=== PATIENT | female | born 1935 | race Caucasian/White ===

== ENCOUNTER → 2016-07-21 16:48 | Outpatient (CLI) | payer OTHER ==
[2012-11-09 10:41] VITALS: BMI 29.7
[~2016-07-21 16:48] MED LIST: ALENDRONATE SOD70 MG PO; BETAPACE 80 MG80 MG PO; CARDIZEM CD240 MG PO; CARDIZEM30 MG PO; COUMADIN2.5 MG PO; EVISTA60 MG PO; GLUCOPHAGE500 MG PO; IPRAT-ALBUT 0.5-3 ML INH; LASIX40 MG PO; LEVO-T50 MCG PO; LEVOTHROID25 MCG; MACRODANTIN100 MG PO; PACERONE200 MG PO; PRINIVIL20 MG PO; PROTONIX FOR OR40 MG PO; SINEMET 25-1001 EACH PO; ZESTRIL40 MG PO
[2016-08-05 12:53] VITALS: BMI 29.8
== END | disposition home or self-care (01) ==
LOC: D.MRI 16:00
DX: M79.672 Pain in left foot (principal)

== ENCOUNTER → 2016-07-23 13:04 | Outpatient (CLI) | payer MEDICARE ==
[2012-11-09 10:41] VITALS: BMI 29.7
[2016-08-05 12:53] VITALS: BMI 29.8
== END | disposition home or self-care (01) ==
LOC: D.US 13:00
DX: I73.9 Peripheral vascular disease, unspecified (principal); M79.605 Pain in left leg; M79.604 Pain in right leg

== ENCOUNTER 2016-08-04 19:41 | Inpatient (IN) | payer MEDICARE ==
[~2016-08-04] VITALS: Ht 158.8 cm; Wt 76.4 kg
[~2016-08-04 19:41] MED LIST changes: -ALENDRONATE SOD70 MG PO; -BETAPACE 80 MG80 MG PO; -CARDIZEM30 MG PO; -GLUCOPHAGE500 MG PO; -IPRAT-ALBUT 0.5-3 ML INH; -LASIX40 MG PO; -LEVO-T50 MCG PO; -MACRODANTIN100 MG PO; -PROTONIX FOR OR40 MG PO; -SINEMET 25-1001 EACH PO; -ZESTRIL40 MG PO
[2016-08-04 20:16] LABS: BASOPHILS 0.1 % (0.0-2.0); EOSINOPHILS 0.1 % (0-7); HEMATOCRIT 35.4 % (36.0-48.0); HEMOGLOBIN 11.9 g/dL (12-16); IMMATURE GRANULOCYTES 0.5 % (0-5); LYMPHOCYTES 21.5 % (15-50); MCH 30.4 pg (26.0-34.0); MCHC 33.6 g/dL (31.0-37.0); MCV 90.3 fL (80.0-100.0); MEAN PLATELET VOLUME 9.8 fL (7.4-10.4); MONOCYTES 8.7 % (2-11); NEUTROPHILS 69.1 % (40-80); RBC 3.92 10x6/uL (4.00-5.40); RDW 15.4 % (11.5-14.5); WBC 7.4 10x3/uL (4.8-10.8)
[2016-08-04 20:27] LABS: PLATELET COUNT 219 10x3/uL (130-400)
[2016-08-04 20:32] LABS: ALBUMIN 3.5 g/dL (3.4-5.0); ANION GAP 16.4 mmol/L (8-16); BILIRUBIN - TOTAL 0.68 mg/dL (0.2-1.3); CALCIUM 8.8 mg/dL (8.5-10.1); CARBON DIOXIDE 20.6 mmol/L (21.0-32.0); CREATININE - SERUM 0.9 mg/dL (0.6-1.3); PROTEIN - SERUM 7.6 g/dL (6.4-8.2)
[2016-08-04 21:21] LABS: CREATINE KINASE 49 UL (21-215); PRO BNP 4459 pg/mL (0-450)
[2016-08-04 21:24] LABS: TROPONIN-I < 0.017 ng/mL (0.000-0.060)
[2016-08-04 22:09] LABS: THYROID STIMULATING HORMONE 3.79 uIU/mL (0.36-3.74)
--- NOTE | 2016-08-04 23:11 | NUR ---
REC'D FROM RE DEPT PER STRETCHER TO ROOM 2219 AN 81 Y/O W/FE PER SERVICES DR. YATES WITH DX ANEMIA/CHF ALLERGY=SULFA/CODEINE. SALINE LOCK PATENT LEFT HAND ASSESSMENT PER ADMIT PACKET.
[2016-08-04 23:29] VITALS: BP 147/89; BMI 29.9
[2016-08-04] MEDS ORDERED: SINEMET 25-1001 EACH PO (23:47)
[2016-08-04] MEDS ORDERED: ZESTRIL40 MG PO (23:48)
[2016-08-04] MEDS ORDERED: ALENDRONATE SOD70 MG PO (23:49)
[2016-08-04] MEDS ORDERED: LEVO-T50 MCG PO (23:50)
[2016-08-04] MEDS ORDERED: GLUCOPHAGE500 MG PO (23:51)
[2016-08-04] MEDS ORDERED: LASIX40 MG PO (23:53)
[2016-08-04] MEDS ORDERED: BETAPACE 80 MG80 MG PO (23:55)
[2016-08-04] MEDS ORDERED: MACRODANTIN100 MG PO (23:56)
--- NOTE | 2016-08-05 00:30 | NUR ---
SITTING UPRIGHT IN BED EATING A SANDWICH TRAY DAUGHTER AT BEDSIDE.
--- NOTE | 2016-08-05 01:00 | NUR ---
PT WANTING IV OUT. EXPLAINED TO DAUGHTER AND PATIENT THE NEED TO KEEP IV IN PLACE FOR NEXT DOSE OF IV LASIX. BOTH ARE AGREEABLE. REPOSITIONED IN BED SR UP CALL LIGHT WITHIN REACH.
--- NOTE | 2016-08-05 03:35 | NUR ---
BEDSIDE UPDRAFT TX GIVEN PER RT TECH PT HAS BEEN SITTING ON SIDE OF BED WANTS TO STAND UP HOWEVER HEART RATE ELEVATED TO 120-133 PER FELTMAKER AND WEIGHER EXPLAINED TO PT'S DAUGHTER GETTING OUT OF BED AT THIS TIME WOULD NOT BE ADVISEABLE.
[2016-08-05 04:00] VITALS: BP 153/100
--- NOTE | 2016-08-05 07:45 | NUR ---
ASSESSMENT PER FLOW SHEET.PT HAVING SHORTNESS OF BREATH. RESP TX IN PROGESS WITH SATS 97 ON 2 LITERS PER NASAL CANULA.HR 144UAF.
--- NOTE | 2016-08-05 08:30 | NUR ---
INCREASED SHORTNESS OF BREATH. INCREASED HR 144UAF.EMMA ON UNIT TO SEE PT.DIG ORDERED PER MAR.FAMILY REFUSES TO LET PT HAVE DIGOXIN ORDERD.DAUGHTER STATES IT MAKES HER FORGET WHO SHE IS AND HER NAME. SPOKE WITH EMMA,NEW ORDERS RECIEVED AND INITIATED.
--- NOTE | 2016-08-05 08:53 | NUR ---
CARDIZEM 10 MG GIVEN IV ORDERED. PULSE RATE PRIOR TO MED WAS 136 UCAF. NOW POST MED IS 94 CAF. RESP SOB WITH WHEEZING NOTED.
[2016-08-05 08:59] VITALS: BP 130/76
--- NOTE | 2016-08-05 09:00 | NUR ---
REPORT TO MONSTER ON PCU.PT WILL GOT TO ROOM 2861
--- NOTE | 2016-08-05 09:14 | NUR ---
TO PCU VIA BED.
--- NOTE | 2016-08-05 10:10 | NUR ---
TELEMETRY UCAF. HR 110. IV PATENT. SCDS APPLIED. URINE SPECIMEN COLLECTED AND TAKEN TO LAB. WILL CONT. PLAN OF CARE.
[2016-08-05 12:00] VITALS: BP 140/82
[2016-08-05 12:53] VITALS: Ht 158.8 cm; Wt 76.4 kg
[2016-08-05 16:09] VITALS: BP 125/87
--- NOTE | 2016-08-05 19:59 | NUR ---
RESUMED CARE OF PT, LYING IN BED RESPIRAITONS EVEN AND UNLABORED ON 2LPM VIA NC. 84 CAF ON TELEMETRY. LEFT HAND INFUSING CARDIZEM @ 5. LARA CATH EMPTYING CONTRATED YELLOW URINE. NO NEEDS VOICED AT THIS TIME. WILL CONTINUE TO MONITOR. CALL LIGHT IN REACH. SEE NURSE ASSESSMENT.
[2016-08-05 20:00] VITALS: BP 113/63
[2016-08-06] VITALS: BP 108/73
--- NOTE | 2016-08-06 00:05 | NUR ---
TAKE OFF MAN AT BEDSIDE TO OBTAIN VITALS, CALL LIGHT IN REACH. WILL CONTINUE WITH PLAN OF CARE.
--- NOTE | 2016-08-06 00:30 | NUR ---
CONVERTED TO SR 64.
--- NOTE | 2016-08-06 01:15 | NUR ---
BED BATH AND LINENS CHANGED.
[2016-08-06 04:00] VITALS: BP 88/42
--- NOTE | 2016-08-06 04:34 | NUR ---
55 SB ON TELEMETRY, [employer] EXPERT REPORTS BP OF 61/43. CARDIZEM TURNED OFF, WILL CONTINUE TO MONITOR.
[2016-08-06 06:07] LABS: BASOPHILS 0.2 % (0.0-2.0); EOSINOPHILS 0 % (0-7); HEMATOCRIT 35.8 % (36.0-48.0); HEMOGLOBIN 11.9 g/dL (12-16); IMMATURE GRANULOCYTES 1.4 % (0-5); MCH 30.4 pg (26.0-34.0); MCHC 33.2 g/dL (31.0-37.0); MCV 91.6 fL (80.0-100.0); MEAN PLATELET VOLUME 10.1 fL (7.4-10.4); MONOCYTES 8.7 % (2-11); NEUTROPHILS 62.7 % (40-80); PLATELET COUNT 243 10x3/uL (130-400); RBC 3.91 10x6/uL (4.00-5.40); RDW 15.7 % (11.5-14.5)
[2016-08-06 06:37] LABS: WBC 12.5 10x3/uL (4.8-10.8)
[2016-08-06 06:38] LABS: ALBUMIN 3.7 g/dL (3.4-5.0); BILIRUBIN - TOTAL 1.33 mg/dL (0.2-1.3); CALCIUM 9.4 mg/dL (8.5-10.1); CARBON DIOXIDE 16.9 mmol/L (21.0-32.0); THYROID STIMULATING HORMONE 6.4 uIU/mL (0.36-3.74)
[2016-08-06 06:50] LABS: CREATININE - SERUM 1.6 mg/dL (0.6-1.3)
[2016-08-06 06:51] LABS: ANION GAP 23.5 mmol/L (8-16)
[2016-08-06 06:53] LABS: POTASSIUM - SERUM 6.4 mmol/L (3.5-5.1)
--- NOTE | 2016-08-06 07:15 | NUR ---
TELEMETRY SR. HR 60. DR. VALENTE NOTIFIED OF CR. LABS. NEW ORDERS GIVEN. WILL CONT. PLAN OF CARE.
[2016-08-06 09:00] VITALS: BP 138/75
[2016-08-06 12:16] LABS: POTASSIUM - SERUM 5.9 mmol/L (3.5-5.1)
[2016-08-06 12:29] VITALS: BP 134/84
--- NOTE | 2016-08-06 13:31 | NUR ---
URINE SPECIMEN TAKEN TO LAB. WILL MONITOR.
[2016-08-06 14:33] LABS: APPEARANCE CLOUDY (CLEAR); BILIRUBIN NEGATIVE (NEGATIVE); COLOR DK YELLOW (YELLOW); GLUCOSE NEGATIVE (NEGATIVE); KETONE NEGATIVE (NEGATIVE); LEUKOCYTE ESTERASE 1+ (NEGATIVE); NITRITE NEGATIVE (NEGATIVE); PROTEIN 2+ mg/dL (NEGATIVE); SPECIFIC GRAVITY 1.015 (1.005-1.020); UROBILINOGEN NORMAL (NORMAL)
[2016-08-06 14:34] LABS: BACTERIA MANY /hpf (NONE SEEN); EPITHELIAL CELLS 0-5 /hpf (0-5); HYALINE CAST OCC /lpf (NONE SEEN); MUCUS <1+ /lpf (NONE SEEN); RED CELLS - URINE 25-50 /hpf (0-5)
[2016-08-06 16:33] VITALS: BP 136/64
[2016-08-06 19:27] LABS: CALCIUM 9.2 mg/dL (8.5-10.1); CREATININE - SERUM 1.7 mg/dL (0.6-1.3); POTASSIUM - SERUM 5.1 mmol/L (3.5-5.1)
[2016-08-06 19:28] LABS: ANION GAP 18.6 mmol/L (8-16); CARBON DIOXIDE 22.5 mmol/L (21.0-32.0)
[2016-08-06 20:00] VITALS: BP 154/94
--- NOTE | 2016-08-06 22:03 | NUR ---
PAGE RENALS TO REVIEW 1800 BMP RESULTS AND GET PAIN MED.
--- NOTE | 2016-08-06 22:10 | NUR ---
SPOKE WITH MELI BRAGG AND UPDATED HER ON BMP RESULTS THAT WAS DONE AT 1900. ALSO SPOKE WITH HER IN REGARDS TO A MILD PAIN MED FOR PATIENT AND THAT DAUGHTER WOULD PREFER IT TO BE TYLENOL. ORDER RECIEVED. WILL CONTINUE TO MONITOR LABS.
--- NOTE | 2016-08-06 23:00 | NUR ---
CRUSHED PT'S MEDS AND GAVE IN APPLESAUCE, INCLUDING TYLENOL FOR GENERALIZED DISCOMFORT. PT TOO WEAK TO USE A STRAW, BUT WILL TAKE APPLEJUICE THAT IS SPOONED TO HER. DAUGHTER MASSAGING PATIENT'S FEET BECAUSE SHE SAID THEY ARE CRAMPING UP ON HER. ASSISTED TO PULL UP AND REPOSITION AND ENCOURAGED EXTRA BITES OF APPLESAUCE AND JUICE SINCE APPETITE AND INTAKE IS POOR.
[2016-08-07] VITALS (7 sets, daily range): BP systolic 119–151; BP diastolic 65–101
--- NOTE | 2016-08-07 03:21 | NUR ---
PT RESTING WITH EYES CLOSED. SINUS LAURYN/53 PER TELEMETRY. CALL LIGHT IN REACH.
[2016-08-07 05:05] LABS: BASOPHILS 0.1 % (0.0-2.0); EOSINOPHILS 0 % (0-7); HEMATOCRIT 35.7 % (36.0-48.0); HEMOGLOBIN 11.8 g/dL (12-16); IMMATURE GRANULOCYTES 0.5 % (0-5); LYMPHOCYTES 12.3 % (15-50); MCH 29.8 pg (26.0-34.0); MCHC 33.1 g/dL (31.0-37.0); MCV 90.2 fL (80.0-100.0); MEAN PLATELET VOLUME 10.2 fL (7.4-10.4); MONOCYTES 8.6 % (2-11); NEUTROPHILS 78.5 % (40-80); PLATELET COUNT 199 10x3/uL (130-400); RBC 3.96 10x6/uL (4.00-5.40); RDW 15.3 % (11.5-14.5); WBC 11.5 10x3/uL (4.8-10.8)
[2016-08-07 05:31] LABS: ALBUMIN 3.1 g/dL (3.4-5.0); BILIRUBIN - TOTAL 1.1 mg/dL (0.2-1.3); CALCIUM 8.8 mg/dL (8.5-10.1); CARBON DIOXIDE 26.4 mmol/L (21.0-32.0); CREATININE - SERUM 1.6 mg/dL (0.6-1.3); PHOSPHOROUS 5.1 mg/dL (2.5-4.9); POTASSIUM - SERUM 4.4 mmol/L (3.5-5.1); PROTEIN - SERUM 6.9 g/dL (6.4-8.2)
--- NOTE | 2016-08-07 09:50 | NUR ---
TELEMETRY AF. HR 99. RESP UL ON . MARCO INTACT. IV PATENT. WILL CONT. PLAN OF CARE.
[2016-08-07 11:51] LABS: MAGNESIUM - SERUM 2.2 mg/dL (1.8-2.4)
--- NOTE | 2016-08-07 13:43 | NUR ---
Nutrition Follow Up: Pt continued to fall asleep during RD visit. Spoke with pt's daughter who reported that pt has not been eating anything - only a few bites of applesauce and a few sips of juice. Daughter stated that pt likes chocolate Boost but does not like vanilla flavored things so would not like the Nepro. Daughter said that family have been eating pt's trays because she has not wanted to eat. Pt's meal avg is 25% meal avg on a renal diet (could be what family is eating though). Pt is on a 1 L fluid restriction. I>O. Meds noted including Metformin. Wt stable. Labs noted - Na 120. Pt with very poor po intake - not meeting est nutritional needs. Rec liberalizing diet if possible to encourage po intake. Will continue to provide selective menus and honor food preferences. RD available to provide nutrition support recs if desired by pt/family/MD. RD following.
--- NOTE | 2016-08-07 15:58 | NUR ---
ASSUME CAR OF PT. LEFT HAND SL. TELEMERTY SHOWS SR. LARA TO BEDSIDE DRAINAGE BAG.FAMILY AY BEDSIDE. WILL MONITOR
[2016-08-07 16:36] LABS: ALBUMIN 3.3 g/dL (3.4-5.0); ANION GAP 11.4 mmol/L (8-16); CALCIUM 8.8 mg/dL (8.5-10.1); CREATININE - SERUM 1.2 mg/dL (0.6-1.3); POTASSIUM - SERUM 4.4 mmol/L (3.5-5.1); PROTEIN - SERUM 7.4 g/dL (6.4-8.2)
[2016-08-07 16:43] LABS: INR 1.75 (0.85-1.17); PROTIME 20.4 SECONDS (11.6-15.0)
--- NOTE | 2016-08-07 16:46 | NUR ---
Patient Name: JAGRUTI MINER Admission Status: ER Accout number: [id number] Admission Date: 08-04-2016 : 1935 Admission Diagnosis:HEART FAILURE, UNSPECIFIED Attending: EM Current LOS: 3 Anticipated DC Date: 08-11-2016 Planned Disposition: Home Primary Insurance: [employer] CHOICE PPO MCR ADVANT Discharge Planning Comments: CM MET WITH PATIENTS DAUGHTER (KHADRA) REGARDING D/C NEEDS AND PLANS. PATIENT WAS RESTING DAUGHTER ANSWERED QUESTIONS. PATIENT LIVES WITH HER SPOUSE (ANKITA). PATIENTS HOME HAS ONE STEP W/O RAIL TO ENTER HOME AND 1 FLIGHT W/RAILS TO BASEMENT (SHE DOES NOT USE THEM). PATIENT IS INDEPENDENT WITH HER CARE AND HAS A WALKER, WHEELCHAIR, SHOWER CHAIR, AND BS COMMODE AT HOME IF NEEDED. PATIENTS PCP IS DR. COMBS AND PHARMACY IS [facility] AT THE [facility]. PATIENT HAS NOT HAD HOME HEALTH RECENTLY. DAUGHTER STATED WHEN SHE DISCHARGES SHE WILL BE MOVING WITH HER TO [place]. IF PATIENT NEEDS REHAB SHE WILL MOVE AFTER THAT PER DAUGHTER. PCP DR. GARRET PEREA AT [facility]- [phone] ANKITA (SPOUSE) [phone] C [phone] KHADRA CHRISTENSEN (DAUGHTER) [phone] Process Control Specialist: Carolyn Goodman How many steps to enter\exit or inside your home? 1 0 * PCP DR. COMBS 0 * Pharmacy [facility] IN [facility] 0 * Preadmission Environment Home with Family 0 * ADLs Independent 0 * Equipment Bedside Commode Shower Chair Walker Wheelchair 0 * List name and contact numbers for known caregivers / representatives who currently or will assist patient after discharge: ANKITA (SPOUSE) [phone] C [phone] KHADRA CHRISTENSEN (DAUGHTER) [phone] 0 * Additional services required to return to the preadmission environment? Yes 0 * Can the patient safely return to the preadmission environment? Yes 0 * Has this patient been hospitalized within the prior 30 days at any hospital? No 0 Grand Total: 0
--- NOTE | 2016-08-07 18:11 | NUR ---
HOB UP. LYING QUIETLY. FAMILY AT BEDSIDE. LARA CATH PATENT.TELEMERTY SHOWS SR
--- NOTE | 2016-08-07 19:40 | NUR ---
DR JEAN ON PHONE, INFORMED HIM OF CURRENT LABS RESULTS. ORDERS GIVEN TO TRANSFER TO ICU.
--- NOTE | 2016-08-07 19:58 | NUR ---
CALLED REPORT TO TIMMY IN ICU, INFORMED PTS FAMILY OF TRANSFER ORDERS.
--- NOTE | 2016-08-07 20:15 | NUR ---
PT TRANSFERRED TO ICU, FAMILY SHOWN TO ICU WAITING ROOM.
--- NOTE | 2016-08-07 20:30 | NUR ---
PATIENT RECEIVED FROM THE FLOOR, HOOKED TO MONITOR, A-FIB NOTED WITH A RATE OF 105-120. VSS, RR EVEN AND NONLABORED. O2 SAT OF 98%. LETHARGIC BUT ALERT AND ORIENTED. ABLE TO FOLLOW COMMANDS AND ANSWER QUESTIONS APPROPRIATELY. SEE SHIFT ASSESSMENT FOR DETAILS, FAMILY AT BEDSIDE AT THIS TIME.
--- NOTE | 2016-08-07 21:30 | NUR ---
PATIENT TOOK MEDS WITH APPLE SAUCE, NO DIFFICULTY.
--- NOTE | 2016-08-07 23:10 | NUR ---
REASSESSMENT COMPLETE PER FLOWSHEET, SEE FOR DETAILS. PATIENT MORE ALERT AT THIS TIME. STATES SHE IS HUNGRY. APPLE SAUCE AND CHOCOLATE MILK GIVEN.
[2016-08-08] VITALS (25 sets, daily range): BP systolic 106–140; BP diastolic 75–108
--- NOTE | 2016-08-08 01:00 | NUR ---
FAMILY FLOWN IN FROM OUT OF STATE. AT BEDSIDE AT THIS TIME. UPDATE GIVEN.
--- NOTE | 2016-08-08 03:10 | NUR ---
REASSESSMENT COMPLETE, PATIENT RESTING WELL. WILL FOLLOW COMMANDS AND ANSWER QUESTIONS. VSS, A-FIB ON MONITOR WITH HR OF 120. DENIES NEED.
[2016-08-08 04:05] LABS: BASOPHILS 0.1 % (0.0-2.0); EOSINOPHILS 0 % (0-7); HEMATOCRIT 37.4 % (36.0-48.0); HEMOGLOBIN 12.5 g/dL (12-16); IMMATURE GRANULOCYTES 0.5 % (0-5); LYMPHOCYTES 11.1 % (15-50); MCH 30.3 pg (26.0-34.0); MCHC 33.4 g/dL (31.0-37.0); MCV 90.8 fL (80.0-100.0); MONOCYTES 10.2 % (2-11); NEUTROPHILS 78.1 % (40-80); PLATELET COUNT 196 10x3/uL (130-400); RBC 4.12 10x6/uL (4.00-5.40); RDW 15.6 % (11.5-14.5); WBC 11.8 10x3/uL (4.8-10.8)
[2016-08-08 04:31] LABS: ALBUMIN 3.1 g/dL (3.4-5.0); BILIRUBIN - TOTAL 1.1 mg/dL (0.2-1.3); CARBON DIOXIDE 30.6 mmol/L (21.0-32.0); CREATININE - SERUM 0.9 mg/dL (0.6-1.3); PROTEIN - SERUM 6.9 g/dL (6.4-8.2)
[2016-08-08 04:33] LABS: ANION GAP 10.1 mmol/L (8-16); PHOSPHOROUS 2.6 mg/dL (2.5-4.9); POTASSIUM - SERUM 3.7 mmol/L (3.5-5.1)
--- NOTE | 2016-08-08 05:00 | NUR ---
RESTING WITH EYES CLOSED, VSS.
--- NOTE | 2016-08-08 06:15 | NUR ---
AT BEDSIDE, UPDATE GIVEN.
--- NOTE | 2016-08-08 08:08 | NUR ---
UP IN BED AT THIS TIME IN FOWLERS POSITION. NO ACUTE DISTRESS NOTED. JVD IS PRESENT RIGHT RADIAL PULSE STRONGER THAN LEFT RADIAL PULSE. WILL NOTIFY PHYSICIAN. PT IS AWAKE. WILL CONTINUE PLAN OF CARE.
--- NOTE | 2016-08-08 08:41 | NUR ---
NOTIFIED RENAL SOFTBALL CORE MOLDERRIKKI, AT THIS TIME OF PTS JVD AND PULSE DIFFERENCE WITH RIGHT RADIAL PULSE STRONGER THAN LEFT RADIAL PULSE.
--- NOTE | 2016-08-08 09:28 | NUR ---
AT BEDSIDE. UPDATE GIVEN. NO ACUTE DISTRESS NOTED. PT ALERT AND ANSWERING QUESTIONS, SPEECH NOTED QUIET AND SLURRED. WILL CONTINUE PLAN OF CARE.
--- NOTE | 2016-08-08 11:43 | NUR ---
UP IN BED RESTING IN LOW FOWLERS POSITION AT THIS TIME. NO ACUTE DISTRESS NOTED. PT AWAKENS EASILY WHEN STAFF STATES PT NAME. PT ALERT AND ORIENTED. ABLE TO STATE NEEDS. RESPIRATIONS AT STEADY AND UNLABORED RATE. WILL CONTINUE PLAN OF CARE.
--- NOTE | 2016-08-08 12:18 | NUR ---
FAMILY AT BEDSIDE FEEDING PT LUNCH. NO ACUTE DISTRESS NOTED. UPDATE GIVEN. WILL CONTINUE PLAN FO CARE.
--- NOTE | 2016-08-08 14:14 | NUR ---
FAMILY AT BEDSIDE. NO ACUTE DISTRESS NOTED. PT RESTING AT THIS TIME. RESPIRATIONS AT STEADY AND UNLABORED RATE. AWAKENS WHEN SPOKEN TO THEN QUICKLY GOES BACK TO SLEEP. PHYSICIAN AWARE OF PT LETHARGIC STATUS. WILL CONTINUE PLAN OF CARE.
[2016-08-08 15:51] LABS: ANION GAP 10.7 mmol/L (8-16); BILIRUBIN - TOTAL 1.21 mg/dL (0.2-1.3); CALCIUM 8.7 mg/dL (8.5-10.1); CARBON DIOXIDE 33.5 mmol/L (21.0-32.0); CREATININE - SERUM 0.8 mg/dL (0.6-1.3); POTASSIUM - SERUM 3.2 mmol/L (3.5-5.1); PROTEIN - SERUM 6.5 g/dL (6.4-8.2)
--- NOTE | 2016-08-08 16:05 | NUR ---
CALLED LAB RESULTS INTO DR JEAN PER REQUEST. NOTED NEW ORDERS RECIEVED. WILL PLACE ORDERS AT THIS TIME. NO ACUTE DISTRESS NOTED TO PT. PT RESTING. AWAKENS WHEN STAFF STATES PT NAME. RESPIRATIONS AT STEADY AND UNLABORED RATE. WILL CONTINUE PLAN OF CARE.
--- NOTE | 2016-08-08 18:34 | NUR ---
UP IN BED RESTING AT THIS TIME, RESPIRATIONS AT STEADY AND UNLABORED RATE. AWAKENS EASILY WHEN STAFF STATES PT NAME. IS MORE ALERT AT THIS TIME WHEN SPOKEN TO. NO ACUTE DISTRESS NOTED. FAMILY AT BEDSIDE. WILL CONTINUE PLAN OF CARE.
[2016-08-08 19:06] LABS: ANION GAP 10.8 mmol/L (8-16); CALCIUM 8.7 mg/dL (8.5-10.1); CARBON DIOXIDE 32.6 mmol/L (21.0-32.0); CREATININE - SERUM 0.8 mg/dL (0.6-1.3); POTASSIUM - SERUM 3.4 mmol/L (3.5-5.1)
--- NOTE | 2016-08-08 19:10 | NUR ---
SHIFT ASSESSMENT COMPLETE PER FLOWSHEET, SEE FOR DETAILS. PATIENT A LITTLE LETHARGIC, STATES SHE IS VERY SLEEPY. IS A&O X4, DENIES PAIN OR NEEDS. RR EVEN AND NONLABORED. A-FIB ON MONITOR WITH RATE OF 106. LARA DRAINING TO GRAVITY. PERIPHERAL PULSES +2. GENERALIZED EDEMA IN EXTREMITIES. SON AT BEDSIDE AT THIS TIME. WILL MONITOR.
--- NOTE | 2016-08-08 21:00 | NUR ---
NIGHT MEDS GIVEN. DAUGHTER AND VISITING. PATIENT AWAKE AND SMILING, HAPPY TO SEE FAMILY. VSS.
--- NOTE | 2016-08-08 22:05 | NUR ---
PIV IN LH WAS LEAKING IV FLUID FROM INSERTION SITE. RESITED 22G PIV IN LEFT WRIST, ONE ATTEMPT. FLUSHES EASY, NO REDNESS/SWELLING.
--- NOTE | 2016-08-08 23:00 | NUR ---
REASSESSMENT COMPLETE, NO CHANGES AT THIS TIME. VSS, CL IN REACH.
[2016-08-09] VITALS (24 sets, daily range): BP systolic 90–128; BP diastolic 58–96
--- NOTE | 2016-08-09 01:10 | NUR ---
PATIENT RESTING WITH EYES CLOSED, RR EVEN AND NONLABORED, VSS.
--- NOTE | 2016-08-09 02:46 | NUR ---
REPOSISTIONED FOR COMFORT, REQUESTS CHAP STICK APPLIED TO LIPS. DENIES FURTHER NEEDS. WILL MONITOR.
[2016-08-09 04:23] LABS: BASOPHILS 0 % (0.0-2.0); EOSINOPHILS 0.4 % (0-7); HEMATOCRIT 36.2 % (36.0-48.0); IMMATURE GRANULOCYTES 0.5 % (0-5); LYMPHOCYTES 13.5 % (15-50); MCH 30.4 pg (26.0-34.0); MCHC 33.1 g/dL (31.0-37.0); MCV 91.6 fL (80.0-100.0); MONOCYTES 12.1 % (2-11); NEUTROPHILS 73.5 % (40-80); PLATELET COUNT 175 10x3/uL (130-400); RBC 3.95 10x6/uL (4.00-5.40); RDW 15.9 % (11.5-14.5); WBC 9.8 10x3/uL (4.8-10.8)
[2016-08-09 04:32] LABS: ALBUMIN 2.7 g/dL (3.4-5.0); ANION GAP 7.7 mmol/L (8-16); BILIRUBIN - TOTAL 1.28 mg/dL (0.2-1.3); CALCIUM 8.3 mg/dL (8.5-10.1); CARBON DIOXIDE 33.8 mmol/L (21.0-32.0); CREATININE - SERUM 0.8 mg/dL (0.6-1.3); POTASSIUM - SERUM 3.5 mmol/L (3.5-5.1); PROTEIN - SERUM 6.4 g/dL (6.4-8.2)
[2016-08-09 04:37] LABS: PHOSPHOROUS 1.8 mg/dL (2.5-4.9)
--- NOTE | 2016-08-09 04:45 | NUR ---
LABS RECEIVED, ELECTROLYTE PROTOCOL FOLLOWED.
--- NOTE | 2016-08-09 08:00 | NUR ---
LYING IN BED RESTING AT THIS TIME. NO ACUTE DISTRESS NOTED. VSS. RESPIRATIONS AT STEADY AND UNLABORED RATE. AWAKENS WHEN STAFF STATES PT NAME. WILL CONTINUE PLAN OF CARE.
--- NOTE | 2016-08-09 08:15 | NUR ---
VERIFIED FROM RENAL MURAL PAINTER TO USE ELECTROLYTE PROTOCOL FOR PT.
--- NOTE | 2016-08-09 10:14 | NUR ---
FAMILY AT BEDSIDE. UPDATE GIVEN. NO ACUTE DISTRESS NOTED. VSS. WILL CONTINUE PLAN OF CARE.
--- NOTE | 2016-08-09 12:05 | NUR ---
FAMILY AT BEDSIDE HELPING PT EAT LUNCH AT THIS TIME. NO ACUTE DISTRESS NOTED. PT IS MORE ALERT AT THIS TIME. EYES OPEN, HAVING SHORT CONVERSATIONS. ABLE TO STATE NEEDS. WILL CONTINUE PLAN OF CARE.
--- NOTE | 2016-08-09 14:56 | NUR ---
BED BATH GIVEN AT THIS TIME VIA TOTAL ASSIST X 2 PERSON. NO ACUTE DISTRESS NOTED. TOTAL LINEN CHANGE PROVIDED. PT UP IN BED AT THIS TIME. FAMILY AT BEDSIDE. TURNED Q2H. WILL CONTINUE PLAN OF CARE.
--- NOTE | 2016-08-09 16:24 | NUR ---
RESTING IN BED AT THIS TIME. RESPIRATIONS AT STEADY AND UNLABORED RATE. AWAKENS EASILY WHEN STAFF STATES PT NAME. NO ACUTE DISTRESS NOTED. WILL CONTINUE PLAN OF CARE.
--- NOTE | 2016-08-09 18:20 | NUR ---
UP IN BED AT THIS TIME. FAMILY AT BEDSIDE. NO ACUTE DISTRESS NOTED. PT IS ALERT AND ORIENTED. VSS. WILL CONTINUE PLAN OF CARE.
--- NOTE | 2016-08-09 19:00 | NUR ---
REPORT RECEIVED AND ASSESSMENT COMPLETED. PT IS COOL TO THE TOUCH. TEMPERATURE IN THE 97'S WARM BLANKET PROVIDED, AND ROOM TEMPERATURE ADJUSTED. FAMILY AT BEDSIDE. WILL MONITOR
--- NOTE | 2016-08-09 21:00 | NUR ---
2100 MEDS GIVEN. VSS. WILL MONITOR
--- NOTE | 2016-08-09 23:00 | NUR ---
REASSESSMENT OMPLETED. SEE FLOWSHEET FOR DETAILS.
[2016-08-10] VITALS (16 sets, daily range): BP systolic 92–131; BP diastolic 52–96
--- NOTE | 2016-08-10 01:00 | NUR ---
NO CHANGES IN PT STATUS AT THIS TIME. VSS. WILL MONITOR
--- NOTE | 2016-08-10 03:00 | NUR ---
REASSESSMENT COMPLETED. SEE FLOWSHEET FOR FULL DETAILS.
[2016-08-10 03:24] LABS: BASOPHILS 0 % (0.0-2.0); EOSINOPHILS 1.2 % (0-7); HEMATOCRIT 38.1 % (36.0-48.0); HEMOGLOBIN 12.3 g/dL (12-16); IMMATURE GRANULOCYTES 0.4 % (0-5); LYMPHOCYTES 17.9 % (15-50); MCH 29.8 pg (26.0-34.0); MCHC 32.3 g/dL (31.0-37.0); MCV 92.3 fL (80.0-100.0); MEAN PLATELET VOLUME 9.4 fL (7.4-10.4); MONOCYTES 10.9 % (2-11); NEUTROPHILS 69.6 % (40-80); PLATELET COUNT 150 10x3/uL (130-400); RBC 4.13 10x6/uL (4.00-5.40); RDW 16.5 % (11.5-14.5); WBC 8.2 10x3/uL (4.8-10.8)
[2016-08-10 03:32] LABS: INR 1.23 (0.85-1.17); PROTIME 15.4 SECONDS (11.6-15.0)
[2016-08-10 03:37] LABS: ALBUMIN 2.7 g/dL (3.4-5.0); ALKALINE PHOSPHATASE 64 U/L (46-116); ALT (SGPT) 49 U/L (10-68); BILIRUBIN - TOTAL 1.12 mg/dL (0.2-1.3); CALC OSMOLALITY 262 mosm/kg (275-300); CALCIUM 8.3 mg/dL (8.5-10.1); CARBON DIOXIDE 33.1 mmol/L (21.0-32.0); CHLORIDE - SERUM 93 mmol/L (98-107); CREATININE - SERUM 0.7 mg/dL (0.6-1.3); GLUCOSE 103 mg/dL (74-106); PHOSPHOROUS 2.5 mg/dL (2.5-4.9); POTASSIUM - SERUM 3.7 mmol/L (3.5-5.1); PROTEIN - SERUM 6.3 g/dL (6.4-8.2); SODIUM 130 mmol/L (136-145); UREA NITROGEN 19 mg/dL (7-18); eGFR NON AFRICAN AMERICAN 85 mL/min (90-120)
--- NOTE | 2016-08-10 05:00 | NUR ---
NOP CHANGES IN STATUS AT THIS TIME. VSS. WILL MONITOR
--- NOTE | 2016-08-10 10:20 | NUR ---
NUTRITION MONITORING & EVAL RENAL PUREED DIET. NURSING REPORTS PT WITH ~25% INTAKE BREAKFAST. WILL CONTINUE TO PROVIDE DIET, MONITOR PO INTAKE, PT PROGRESS. RD FOLLOWING
--- NOTE | 2016-08-10 15:46 | NUR ---
1540- REC'D ORDER FOR PT TO TRANSFER OUT. REPORT CALLED TO FLOOR NURSE.
--- NOTE | 2016-08-10 16:34 | NUR ---
PT RECIEVED FROM ICU TO ROOM 2128.
[2016-08-11 00:40] VITALS: BP 112/68
[2016-08-11 04:38] LABS: HEMATOCRIT 37.8 % (36.0-48.0); HEMOGLOBIN 12.5 g/dL (12-16); LYMPHOCYTES 18.1 % (15-50); MCH 30.9 pg (26.0-34.0); MCHC 33.1 g/dL (31.0-37.0); MCV 93.3 fL (80.0-100.0); MEAN PLATELET VOLUME 8.7 fL (7.4-10.4); NEUTROPHILS 70.1 % (40-80); PLATELET COUNT 140 10x3/uL (130-400); RBC 4.05 10x6/uL (4.00-5.40); RDW 17.8 % (11.5-14.5); WBC 6.5 10x3/uL (4.8-10.8)
[2016-08-11 05:19] LABS: ALBUMIN 2.7 g/dL (3.4-5.0); ANION GAP 8.4 mmol/L (8-16); BILIRUBIN - TOTAL 1.09 mg/dL (0.2-1.3); CALCIUM 8.3 mg/dL (8.5-10.1); CARBON DIOXIDE 33.8 mmol/L (21.0-32.0); POTASSIUM - SERUM 3.2 mmol/L (3.5-5.1); PROTEIN - SERUM 6.4 g/dL (6.4-8.2)
[2016-08-11 05:21] LABS: CREATININE - SERUM 0.9 mg/dL (0.6-1.3)
[2016-08-11 05:57] VITALS: BP 118/73
--- NOTE | 2016-08-11 06:05 | NUR ---
AM MEDS GIVEN. POTASSIUM LEVEL 3.2, ON ELECTROLYTE PROTOCOL. STARTED #1 OF 4 10MEQ POTASSIUM RIDERS VIA IV. AT BEDSIDE.
--- NOTE | 2016-08-11 07:20 | NUR ---
RECEIVED REPORT. ASSUMED CARE OF PATIENT. CALL LIGHT WITHIN REACH. FAMILY AT BEDSIDE. PATIENT ALERT/AWAKE. SIPS OF WATER PROVIDED AT THIS TIME. F/C PATENT. IV FLUIDS INFUSING ORDERED. NO DISTRESS.
[2016-08-11 08:00] VITALS: BP 128/89
--- NOTE | 2016-08-11 10:51 | NUR ---
RESTING WELL IN BED. EYES CLOSED, EASILY AROUSED. NO DISTRESS. SPOUSE AT BEDSIDE. CALL LIGHT WITHIN REACH.
--- NOTE | 2016-08-11 10:57 | NUR ---
CALMOSEPTINE ORDERED FROM PHARMACY AT THIS TIME.
[2016-08-11 12:08] VITALS: BP 107/59
--- NOTE | 2016-08-11 13:49 | NUR ---
PATIENT LEAVING UNIT WITH SPEECH THERAPY FOR SWALLOW EVALUATION. NO DISTRESS.
[2016-08-11 16:00] VITALS: BP 142/90
--- NOTE | 2016-08-11 17:59 | NUR ---
22 GAUGE IV SITED TO LEFT HAND X 1 STICK. GOOD BLOOD RETURN, EASY FLUSH. TAPED, DATED AND SECURED, TOLERATED IV PLACEMENT WELL. NO DISTRESS. 22 GAUGE IV REMOVED FROM LEFT WRIST SITE NOT PATENT. NO BLEEDING FROM SITE. 2X2 GAUZE APPLIED AND SECURED WITH TAPE. CATHETER TIP INTACT. TOLERATED IV REMOVAL WELL. IV FLUIDS INFUSING AT KVO RATE AT THIS TIME. NO DISTRESS.
[2016-08-11 21:13] VITALS: BP 126/77
--- NOTE | 2016-08-12 07:44 | NUR ---
AM ROUNDING- RECEIVED REPORT FROM CORE MANAGER NURSE JONNATHAN. PT IS CURRENTLY LAYING IN BED ON BACK WITH EYES CLOSED RESTING. DAUGHTER IS AT BEDSIDE. ON MONITOR SHOWING CONTROLLED A-FIB, HR 96 (PER REPORT DOCTOR IS AWARE). ON EP, WILL CHECK AM LABS AND TX PER PROTOCOL. LARA CATHETER SEEN. ON 02 AT 2L VIA NC. IV SEEN TO LEFT HAND WITH NS RUNNING AT KVO (10CC). SCDS ARE ON. NO NEED AT CURRENT TIME. WILL CONTINUE TO MONITOR AND CONTINUE WITH PLAN OF CARE.
[2016-08-12 08:25] LABS: ALBUMIN 2.7 g/dL (3.4-5.0); ALKALINE PHOSPHATASE 59 U/L (46-116); ALT (SGPT) 53 U/L (10-68); CALC OSMOLALITY 268 mosm/kg (275-300); CALCIUM 8.6 mg/dL (8.5-10.1); CHLORIDE - SERUM 95 mmol/L (98-107); CREATININE - SERUM 0.7 mg/dL (0.6-1.3); GLUCOSE 96 mg/dL (74-106); POTASSIUM - SERUM 3.4 mmol/L (3.5-5.1); PROTEIN - SERUM 6.4 g/dL (6.4-8.2); SODIUM 134 mmol/L (136-145); UREA NITROGEN 14 mg/dL (7-18); eGFR NON AFRICAN AMERICAN 85 mL/min (90-120)
[2016-08-12 08:37] VITALS: BP 146/86
[2016-08-12 12:32] VITALS: BP 135/81
--- NOTE | 2016-08-12 13:23 | NUR ---
CANDY PITTMAN PATTERNMAKER METAL STATES IT IS OKAY TO ORDER AN EGGCRATE MATTRESS FOR PT. CALLED [employer] AND THEY STATE THEY WILL GET ONE.
--- NOTE | 2016-08-12 14:38 | NUR ---
Patient Name: JAGRUTI MINER Encounter No: [id number] : 1935 Primary Insurance: [employer] CHOICE PPO MCR ADVANT Anticipated DC Date: 08-11-2016 Planned Disposition: [facility] FAC[facility] External Planned Provider: [facility], MEDICARE REHAB BED DCP follow-up note: CM SPOKE TO THERAPIST WHO EXPRESSED CONCERN THAT PT IS IN NEED OF [facility] FACILITY REHAB PRIOR TO RETURNING HOME. CM MET WITH PT AND DAUGHTER, KHADRA, IN ROOM TO DISCUSS DISCHARGE PLANNING AND NEEDS. PT REPORTS KNOWING SHE NEEDS REHAB BEFORE DISCHARGING TO GO TO HER NEW HOME NEXT TO HER DAUGHTERS IN [place]. PT CHOICE SIGNED FOR [facility]. CM CALLED SATHYA OF [facility], , WHO REPORTS THEY WILL HAVE A REHAB BED AVAILABLE ON WEDNESDAY. CM FAXED REFERRAL TO [facility] AT [phone]. CM WAITING ADMISSION DETERMINATION FROM [facility]. Tristian Marrero, CASE MANAGEMENT
[2016-08-12 16:07] VITALS: BP 131/81
--- NOTE | 2016-08-12 17:20 | NUR ---
Patient Name: JAGRUTI MINER Encounter No: [id number] : 1935 Primary Insurance: [employer] CHOICE PPO MCR ADVANT Anticipated DC Date: 08-11-2016 Planned Disposition: [facility] FAC[facility] External Planned Provider: [facility]ED DCP follow-up note: CM RECEIVED CALL FROM SATHYA [facility], , WHO REPORTS NO AVAILABLE REHAB BED FOR [facility]. CM SPOKE TO PT, SPOUSE AND DAUGHTER IN ROOM, DISCUSSED OPTIONS. PT AND FAMILY ASKED FOR REFERRALS TO BE FAXED TO [facility] AND [facility], FAMILY TO VISIT EACH FACILITY TODAY OR TOMORROW. CM CALLED [facility], , SPOKE TO BRYSON WHO REPORTS BEING IN NETWORK AND HAVING AVAILABLE REHAB BEDS. CM FAXED REFERRAL TO [phone]. CM CALLED SANTI OF [facility], , WHO REPORTS BEING IN NETWORK AND HAVING AVAILABLE REHAB BEDS. CM FAXED REFERRAL TO [phone]. CM WAITING ADMISSION DETERMINATION FROM [facility] AND [facility] FOR [facility]. Tristian Marrero, CASE MANAGEMENT
--- NOTE | 2016-08-12 17:40 | NUR ---
PT LAYING IN BED ON BACK WITH HOB ELEVATED AT 40 DEGREES EATING DINNER WITH ASSISTANCE FROM DAUGHTERS AND . NO NEED AT CURRENT TIME. WILL CONTINUE TO MONITOR.
--- NOTE | 2016-08-12 19:30 | NUR ---
ASSESSMENT COMPLETE, O2 @ 2L VIA NC IN USE, LEFT HAND IV WITH NS INFUSING W/O DIFF VIA PUMP AT 10CC/HR, WITH NO R/S NOTED AT SITE. TURN Q 2 HOURS FOR C & C. JENNIE WELL. DENIES NEEDS AT THIS TIME. CONTINUE TO MONITOR,
[2016-08-12 20:57] VITALS: BP 136/88
[2016-08-12 23:00] VITALS: BP 117/76
--- NOTE | 2016-08-13 03:21 | NUR ---
EYES CLOSED, RESP EVEN AND UNLAB WITH TELEMETRY SHOWING HR UCAFIB AT THIS TIME. C/L IN REACH. CONTINUE TO MONITOR.
[2016-08-13 05:47] VITALS: BP 131/74
[2016-08-13 06:05] LABS: BASOPHILS 0.1 % (0.0-2.0); EOSINOPHILS 1.1 % (0-7); HEMATOCRIT 40.1 % (36.0-48.0); HEMOGLOBIN 12.9 g/dL (12-16); IMMATURE GRANULOCYTES 0.7 % (0-5); LYMPHOCYTES 21.2 % (15-50); MCH 29.9 pg (26.0-34.0); MCHC 32.2 g/dL (31.0-37.0); MEAN PLATELET VOLUME 10.2 fL (7.4-10.4); MONOCYTES 11.6 % (2-11); NEUTROPHILS 65.3 % (40-80); PLATELET COUNT 136 10x3/uL (130-400); RBC 4.31 10x6/uL (4.00-5.40); RDW 16.4 % (11.5-14.5); WBC 8.3 10x3/uL (4.8-10.8)
[2016-08-13 06:31] LABS: ALBUMIN 2.7 g/dL (3.4-5.0); ALKALINE PHOSPHATASE 56 U/L (46-116); BILIRUBIN - TOTAL 0.98 mg/dL (0.2-1.3); CALC OSMOLALITY 268 mosm/kg (275-300); CALCIUM 8.5 mg/dL (8.5-10.1); CARBON DIOXIDE 30.4 mmol/L (21.0-32.0); CHLORIDE - SERUM 96 mmol/L (98-107); CREATININE - SERUM 0.7 mg/dL (0.6-1.3); GLUCOSE 118 mg/dL (74-106); POTASSIUM - SERUM 3.9 mmol/L (3.5-5.1); PROTEIN - SERUM 6.6 g/dL (6.4-8.2); SODIUM 134 mmol/L (136-145); UREA NITROGEN 13 mg/dL (7-18); eGFR NON AFRICAN AMERICAN 85 mL/min (90-120)
[2016-08-13 06:41] LABS: ALT (SGPT) 36 U/L (10-68)
[2016-08-13 07:16] LABS: MAGNESIUM - SERUM 1.6 mg/dL (1.8-2.4); PHOSPHOROUS 2.6 mg/dL (2.5-4.9)
--- NOTE | 2016-08-13 07:25 | NUR ---
PT SITTING UP IN BED SLEEPING NO S/S DISTRESS NOTED. DAUGHTER AT BEDSIDE ALSO SLEEPING WILL CONT TO MONITOR
[2016-08-13 08:03] VITALS: BP 141/86
[2016-08-13 12:10] VITALS: BP 113/61
--- NOTE | 2016-08-13 12:32 | NUR ---
PUT BUTTPASTE ON PT BUTTOCK AND APPLIED MEPELEX DRESSING SIGNED AND DATED
--- NOTE | 2016-08-13 13:50 | NUR ---
Patient Name: JAGRUTI MINER Encounter No: [id number] : 1935 Primary Insurance: [employer] CHOICE PPO MCR ADVANT Anticipated DC Date: 08-14-2016 Planned Disposition: CUSTODIAL OR INPATIENT REHAB External Planned Provider: [facility] INPATIENT REHAB DCP follow-up note: CM SPOKE TO SANTI OF [facility] WHO REPORTED THAT [place] IS OUT OF NETWORK; SANTI MET WITH PT AND DAUGHTER IN ROOM. PT'S DAUGHTER ASKED CM TO FAX INFORMTION TO [facility]. CM NOTIFIED [facility]ANT[facility] OF [facility]. CM CALLED AND SPOKE TO BRYSON OF [facility] WHO REPORTS HAVING BED AND WILL SUBMIT FOR INSURANCE AUTHORIZATION FOR REHAB SERVICES. PT AND DAUGHTER NOTIFIED. PT'S DAUGHTER REPORTS SHE WOULD LIKE TO HAVE PT CONSIDERED FOR INPATIENT REHAB PT MAY BE ABLE TO PARTICIPATE IN THREE HOURS OF PROGRESSIVE THERAPY AFTER A COUPLE MORE DAYS OF WORKING WITH THERAPY HERE IN THE HOSPTIAL. CM OBTAINED ORDER FOR OCCUPATIONAL THERAPY EVALUATION, HOWARD PITTMAN NOTIFIED. CM WAITING ADMISSION DETERMINATION FROM [facility] AND [facility] INSURANCE AUTHORIZATION FOR CUSTODIAL REHAB. Tristian Marrero, CASE MANAGEMENT
--- NOTE | 2016-08-13 13:59 | NUR ---
Nutrition Follow Up: Pt was asleep at the time of RD visit. Spouse reported that pt has not been eating much. Pt is eating 20% meal avg on a renal puree diet with nectar thick liquids. Labs reviewed. Meds noted including Metformin. Pt continues with poor po intake. Rec liberalizing diet to encourage po intake. RD following.
[2016-08-13 15:12] LABS: APPEARANCE CLEAR (CLEAR); BACTERIA FEW /hpf (NONE SEEN); BILIRUBIN NEGATIVE (NEGATIVE); COLOR YELLOW (YELLOW); GLUCOSE NEGATIVE (NEGATIVE); KETONE NEGATIVE (NEGATIVE); LEUKOCYTE ESTERASE TRACE (NEGATIVE); MUCUS <1+ /lpf (NONE SEEN); NITRITE NEGATIVE (NEGATIVE); PROTEIN 1+ mg/dL (NEGATIVE)
[2016-08-13 15:49] VITALS: BP 126/74
--- NOTE | 2016-08-13 18:03 | NUR ---
PT SITTING UP IN BED DENIES NEEDS
--- NOTE | 2016-08-13 19:30 | NUR ---
AWAKE, ALERT, RESP EVEN AND UNLAB WITH NO S/S OF ACUTE DISTRESS NOTED AT THIS TIME.NS INFUSING W/O DIFF VIA PUMP AT KVO WITH NO R/S NOTED AT SITE ON LEFT HAND. ON BEDREST, TURN Q 2 HOURS FOR C & C. JENNIE WELL. TELEMETRY SHOWING HR UCAFIB PER TOOL HONING MACHINE SET UP OPERATOR. LARA CATH WITH YELLOW URIN NOTED IN BAG, BILAT SCDS TO LOWER LEGS INTACT, SKIN CHECKED FOR BREAK DOWN. PILLOWS BEING USED FOR SUPPORT. CONTINUE TO MONITOR.
[2016-08-13 20:00] VITALS: BP 142/96
[2016-08-14] VITALS: BP 126/70
--- NOTE | 2016-08-14 00:39 | NUR ---
EYES CLOSED, RESP EVEN AND UNLAB CONT TO BE UCAFIB AT THIS TIME. HOB UP SR UP X2, C/L IN REACH. DAUGHTER AT BEDSIDE FOR NIGHT.
[2016-08-14 04:00] VITALS: BP 141/78
[2016-08-14 05:45] LABS: BASOPHILS 0.1 % (0.0-2.0); EOSINOPHILS 0.3 % (0-7); HEMATOCRIT 40.8 % (36.0-48.0); HEMOGLOBIN 13.1 g/dL (12-16); IMMATURE GRANULOCYTES 0.6 % (0-5); LYMPHOCYTES 23.5 % (15-50); MCH 29.8 pg (26.0-34.0); MCHC 32.1 g/dL (31.0-37.0); MCV 92.9 fL (80.0-100.0); MEAN PLATELET VOLUME 10.1 fL (7.4-10.4); MONOCYTES 10.6 % (2-11); NEUTROPHILS 64.9 % (40-80); PLATELET COUNT 133 10x3/uL (130-400); RBC 4.39 10x6/uL (4.00-5.40); RDW 16.5 % (11.5-14.5)
[2016-08-14 06:03] LABS: ALBUMIN 2.6 g/dL (3.4-5.0); ALKALINE PHOSPHATASE 56 U/L (46-116); ALT (SGPT) 42 U/L (10-68); CALC OSMOLALITY 264 mosm/kg (275-300); CARBON DIOXIDE 32.1 mmol/L (21.0-32.0); CHLORIDE - SERUM 94 mmol/L (98-107); CREATININE - SERUM 0.6 mg/dL (0.6-1.3); GLUCOSE 129 mg/dL (74-106); MAGNESIUM - SERUM 1.9 mg/dL (1.8-2.4); PHOSPHOROUS 2.9 mg/dL (2.5-4.9); POTASSIUM - SERUM 3.6 mmol/L (3.5-5.1); PROTEIN - SERUM 6.7 g/dL (6.4-8.2); SODIUM 131 mmol/L (136-145); UREA NITROGEN 13 mg/dL (7-18); eGFR NON AFRICAN AMERICAN > 90 mL/min (90-120)
--- NOTE | 2016-08-14 07:25 | NUR ---
PT SITTING UP IN BED SLEEPING NO S/S DISTRESS NOTED. DAUGHTER AT BEDSIDE WILL CONT TO MONITOR
--- NOTE | 2016-08-14 08:42 | NUR ---
DAUGHTER AT BEDSIDE DURING AM MED PASS. EXPLAINED EACH MEDICATION TO FAMILY AND PT BOTH VERBALIZE UNDERSTANDING. WHEN I WAS FINISHED WITH ADMINISTRATION, PT DAUGHTER QUESTIONED WHETHER I SCANNED HER ARM BAND OR NOT. I EXPLAINED TO PT DAUGHTER THAT I INDEED DID AND THAT I COULD NOT HAVE GIVEN HER MEDICATIONS OTHERWISE. PT DAUGHTER ALSO ASKED WHO HAD FED HER MOTHER LAST NIGHT WHEN THEY WERE GONE. I TOLD HER THAT I WASNT SURE WHO FED HER, MIGHT HAVE BEEN THE REPLANTING MACHINE CREW YESTERDAY NIGHT. I TOLD HER THAT PT DID EAT A FEW BITES OF HER BREAD AND MEAL, SO SOMEONE DID FEED HER. AND THAT I ALSO GAVE HER APPLESAUCE WITH MEDS. DAUGHTER VERBALIZES UNDERSTANDING.
[2016-08-14 08:58] VITALS: BP 121/91
--- NOTE | 2016-08-14 12:24 | EC ---
PATIENT:JAGRUTI MINER DATE OF SERVICE: 08/04/16 SEX: F MEDICAL RECORD: [id number] DATE OF : [birth year] LOCATION:D. D.212 AGE OF PATIENT: 81 ADMISSION DATE: 08/04/16 REFERRING PHYSICIAN: INTERPRETING PHYSICIAN: HOLDEN HANNAH M.D. ECHOCARDIOGRAM REPORT ECHO CHARGES 4 ECHO COMPLETE CLINICAL DIAGNOSIS: CHF/MR ECHOCARDIOGRAPHIC MEASUREMENTS (adult normal given) AC root (d.<3.7cm) 2.5 LV Septum d (<1.2 cm> 1.3 Valve Excursion 1.3 LV Septum (systole) 1.6 Left Atria (s.<4.0cm> 5.0 LVPW d(<1.2cm) 1.2 RV (d.<2.3cm) 2.9 LVPW (sytole) 1.9 LV diastole(<5.6CM) 5.1 MV E-F(>70mm/sec) LV systole 3.7 LVOT Diameter 1.6 MV exc.(>10mm) Est.ejection fraction (50-75%) Pericardial Effusion N DOPPLER: LVIT A E 127 LA RVSP 45.0 LVOT 74.0 AOP1/2T Asc. Ao 160 RVOT 83.0 RA PA 67.0 AV Gradient Peak 10.2 AV Mean 4.7 AV Area 1.2 MV Gradient Peak 7.2 MV Mean 3.1 MV Area COMMENTS: Clinical Rn Liaison: Dinora SELLERSOE Associate Chemist:2 Dr. Hannah TAPE# PACS DATE OF SERVICE: 08/05/2016 REFERRING PHYSICIAN: Lara Schulz MD INDICATION: CHF. DESCRIPTION: Left ventricle demonstrates left ventricular hypertrophy. There is mild LV dysfunction noted. Estimated ejection fraction is in the order of 40%. Mitral valve is structurally normal. There is moderate regurgitation seen. Left atrium is moderately dilated. The aortic valve is trileaflet. ECHOCARDIOGRAM REPORT [id number] JAGRUTI MINER There is no stenosis or regurgitation seen. Right ventricle is mildly dilated. Tricuspid valve is structurally normal. There is severe regurgitation noted. Right atrium is mildly dilated. There is no pericardial effusion seen. IMPRESSION: 1. Left ventricular hypertrophy with mild left ventricular dysfunction with ejection fraction of 40%. 2. Moderate mitral regurgitation. 3. Severe tricuspid regurgitation. TRANSINT:[id number] Voice Confirmation ID: [id number] DOCUMENT ID: [id number] HOLDEN HANNAH M.D. at 1224 CC: [id number] DICTATION DATE: 08/05/16 1631 [employer] TANK: 08/06/16 0036 ADM IN [facility] [address] [id number]
[2016-08-14 13:16] VITALS: BP 137/82
--- NOTE | 2016-08-14 13:52 | NUR ---
CALLED TO PT ROOM PT HAVING A "COUGHING FIT", HAS JUST FINISHED HER LUNCH THAT DAUGHTER HAD FED HER. PT IS HEAVING LIKE SHE IS NAUSEATED. GOT VERBAL ORDER FROM CANDY BRAGG FOR IV ZOFRAN. GIVEN. PT SEEMS A LITTLE BETTER AFTER ADMINISTRATION BUT STILL COUGHING. TALKED TO CANDY ABOUT FEAR OF ASPIRATION. SHE SAID TO ORDER CHEST XRAY DONE. PT HAS CALMED DOWN TREMENDOUSLY STILL OCCASIONAL COUGHING, BUT WANT TO BE SAFE AND MAKE SURE NO ASPIRATION
--- NOTE | 2016-08-14 16:24 | NUR ---
Patient Name: JAGRUTI MINER Encounter No: [id number] : 1935 Primary Insurance: HUMANA CHOICE PPO MCR ADVANT Anticipated DC Date: 08-14-2016 Planned Disposition: INTERMEDIATE FACILITY External Planned Provider: [facility] OR [facility] MEDICARE REHAB BED DCP follow-up note: CM RECEIVED CALL FROM BRYSON OF [facility], , AND SANTI OF [facility], , BOTH HAVE SUBMITTED FOR AUTHORIZATION FOR INTERMEDIATE FROM PT'S INSURANCE. CM WAITING INSURANCE AUTHORIZATION FOR INTERMEDIATE REHAB TO ENTER EITHER [facility] OR [facility]. Tristian Marrero, CASE MANAGEMENT
[2016-08-14 17:21] VITALS: BP 125/83
--- NOTE | 2016-08-14 19:30 | NUR ---
EYES CLOSED, RESP EVEN AND UNLAB WITH NO S/S OF ACUTE DISTRESS NOTED.O2@3L VIA NC IN PLACE. TELEMETRY SHOWING HR CAFIB PER MONITOR. O2 @ 2L NC IN PLACE. TURN Q 2 HOURS FOR C & C. JENNIEWELL.LARA INTACT AND PATENT WITH YELLOW URINE NOTED IN BAG.HOB UP SR UP X2, C/L IN REACH. CONTINUE TO MONITOR.
[2016-08-14 20:00] VITALS: BP 110/62
[2016-08-15] VITALS: BP 119/67
[2016-08-15 04:00] VITALS: BP 132/82
[2016-08-15 05:54] LABS: BASOPHILS 0.3 % (0.0-2.0); EOSINOPHILS 1.5 % (0-7); HEMATOCRIT 38.2 % (36.0-48.0); HEMOGLOBIN 12.1 g/dL (12-16); IMMATURE GRANULOCYTES 0.5 % (0-5); LYMPHOCYTES 25.1 % (15-50); MCH 29.7 pg (26.0-34.0); MCHC 31.7 g/dL (31.0-37.0); MCV 93.9 fL (80.0-100.0); MEAN PLATELET VOLUME 10.5 fL (7.4-10.4); MONOCYTES 11.7 % (2-11); NEUTROPHILS 60.9 % (40-80); PLATELET COUNT 125 10x3/uL (130-400); RBC 4.07 10x6/uL (4.00-5.40); RDW 16.2 % (11.5-14.5)
[2016-08-15 06:10] LABS: WBC 6.2 10x3/uL (4.8-10.8)
[2016-08-15 06:21] LABS: ALBUMIN 2.5 g/dL (3.4-5.0); ANION GAP 7.6 mmol/L (8-16); BILIRUBIN - TOTAL 1.02 mg/dL (0.2-1.3); CALCIUM 8.4 mg/dL (8.5-10.1); CARBON DIOXIDE 33.7 mmol/L (21.0-32.0); MAGNESIUM - SERUM 1.8 mg/dL (1.8-2.4); PHOSPHOROUS 2.8 mg/dL (2.5-4.9); POTASSIUM - SERUM 3.3 mmol/L (3.5-5.1); PROTEIN - SERUM 6.5 g/dL (6.4-8.2)
[2016-08-15 06:24] LABS: CREATININE - SERUM 0.8 mg/dL (0.6-1.3)
--- NOTE | 2016-08-15 06:45 | NUR ---
RECEIVED PT REPORT. NO CO PAIN AT THIS TIME. WILL CONTINUE PLAN OF CARE. NO OTHER NEEDS.
[2016-08-15 08:00] VITALS: BP 110/67
--- NOTE | 2016-08-15 08:14 | NUR ---
PT IS ALERT. ASSESSMENT DONE PER FLOWSHEET.
[2016-08-15 12:00] VITALS: BP 130/77
--- NOTE | 2016-08-15 13:25 | NUR ---
PT'S DAUGHTER DID NOT WANT MOTHER WOKE UP SHE WAS "WORE OUT FROM HER BIG MORNING AND NEEDS HER SLEEP" CRUSHED POTASSIUM AND CARBADOPA AT BEDSIDE FOR ADMINISTRATION WHEN PT WAKES UP.
[2016-08-15 15:59] VITALS: BP 130/76
[2016-08-15 20:27] VITALS: BP 122/66
--- NOTE | 2016-08-15 21:57 | NUR ---
INITIAL ROUNDS COMPLETED AT 1910 HRS. PT DENIED ANY DISCOMFORT. SPOUSE AT BEDSIDE. ASSESSMENT COMPLETED AT 1945 HRS. VSS. IV TO L HAND WITH NS AT 10CC/HR. IV PATENT. O2 2LNC. CAF PER CM HR 98. LUNGS DIMINISHED IN BASES BILAT. BRUISES NOTED TO R HAND AND FOREARM. DRESSING TO COCCYX/BUTTOCK CLEAN, DRY AND INTACT. SCD'S IN USE. SCD'S REMOVED AND SKIN INSPECTED. NO DEFICITS NOTED. LARA DRAINING YELLOW URINE. ALERT AND ORIENTED TO PERSON, AND PLACE. REORIENTED TO TIME. PM MEDS GIVEN CRUSHED IN ORANGE SHERBERT. PT REPOSITIONED IN BED FOR COMFORT. PT CURENTLY RESTING WITH EYES CLOSED. RESP EVEN AND REGULAR. SR UP X2, CALL LIGHT WITHIN REACH, BED ALARM ON AND DAUGHTER AT BEDSDIE.
--- NOTE | 2016-08-16 | NUR ---
PT RESTING WITH EYES CLOSED. RESP EVEN AND REGULAR. SR UP X2, CALL LIGHT WITHIN REACH. DAUGHTER AT BEDSIDE.
[2016-08-16 00:04] VITALS: BP 106/73
--- NOTE | 2016-08-16 01:49 | NUR ---
PT RESTING WITH EYES CLOSED. RESP EVEN AND REGULAR. SR UP X2, CALL LIGHT WITHIN REACH.
[2016-08-16 04:39] VITALS: BP 119/69
--- NOTE | 2016-08-16 04:39 | NUR ---
PT RESTING WITH EYES CLOSED. RESP EVEN AND REGULAR. SR UP X2, CALL LIGHT WITHIN REACH.
--- NOTE | 2016-08-16 06:45 | NUR ---
VSS THROUGHOUT NIGHT. CAF PER CM. PT DENIED ANY DISCOMFORT. NEEDS MET; WILL CONTINUE TO MONITOR.
[2016-08-16 07:46] LABS: BASOPHILS 0.2 % (0.0-2.0); EOSINOPHILS 1.3 % (0-7); HEMATOCRIT 38.9 % (36.0-48.0); HEMOGLOBIN 12.2 g/dL (12-16); IMMATURE GRANULOCYTES 0.6 % (0-5); LYMPHOCYTES 28.9 % (15-50); MCH 29.5 pg (26.0-34.0); MCHC 31.4 g/dL (31.0-37.0); MEAN PLATELET VOLUME 10.5 fL (7.4-10.4); MONOCYTES 11.6 % (2-11); NEUTROPHILS 57.4 % (40-80); RBC 4.14 10x6/uL (4.00-5.40); RDW 16.5 % (11.5-14.5); WBC 5.4 10x3/uL (4.8-10.8)
[2016-08-16 07:53] LABS: PLATELET COUNT 169 10x3/uL (130-400)
[2016-08-16 08:00] VITALS: BP 133/90
[2016-08-16 08:14] LABS: ALBUMIN 2.5 g/dL (3.4-5.0); ALKALINE PHOSPHATASE 58 U/L (46-116); ALT (SGPT) 38 U/L (10-68); BILIRUBIN - TOTAL 0.79 mg/dL (0.2-1.3); CALC OSMOLALITY 272 mosm/kg (275-300); CALCIUM 8.5 mg/dL (8.5-10.1); CARBON DIOXIDE 31.9 mmol/L (21.0-32.0); CHLORIDE - SERUM 99 mmol/L (98-107); CREATININE - SERUM 0.7 mg/dL (0.6-1.3); GLUCOSE 94 mg/dL (74-106); PHOSPHOROUS 2.8 mg/dL (2.5-4.9); POTASSIUM - SERUM 3.8 mmol/L (3.5-5.1); PROTEIN - SERUM 6.6 g/dL (6.4-8.2); SODIUM 136 mmol/L (136-145); UREA NITROGEN 16 mg/dL (7-18); eGFR NON AFRICAN AMERICAN 85 mL/min (90-120)
[2016-08-16 11:25] VITALS: BP 115/69
[2016-08-16 15:50] VITALS: BP 117/75
--- NOTE | 2016-08-16 20:17 | NUR ---
INITIAL ROUNDS COMPLETED AT 1920 HRS. PT DENIED ANY DISCOMFORT. ASSESSMENT COMPLETED AT 2009 HRS. VSS. CAF PER CM HR 97. O2 2LNC. IV TO LHAND WITH NS AT 10CC/HR. IV PATENT. BRUISES NOTED TO R HAND AND RFA. DRESSING TO BUTTOCKS CLEAN, DRY AND INTACT. ACOSTA. PT DECLINES SCD'S AT THIS TIME. LARA DRAINING YELLOW URINE. AT BEDSIDE. SR UP X2, CALL LIGHT WITHIN REACH.
[2016-08-16 20:48] VITALS: BP 129/84
--- NOTE | 2016-08-16 22:06 | NUR ---
PM MEDS GIVEN CRUSHED IN APPLE SAUCE. PT PLACED IN HIGH FOWLERS FOR MED ADMINISTRATION. REPOSITIONED IN BED FOR COMFORT. LARA CARE DONE. IV TUBING CHANGED. PT DENIES ANY DISCOMFORT. SPOUSE AT BEDSDIE. SR UP X2, CALL LIGHT WITHIN REACH AND BED ALARM ON. PT REFUSES SCD'S AT THIS TIME. +
--- NOTE | 2016-08-17 00:08 | NUR ---
PT RESTING WITH EYES CLOSED. RESP EVEN AND REGULAR. SR UP X2, CALL LIGHT WITHIN REACH, BED ALARM ON AND SPOUSE AT BEDSIDE.
[2016-08-17 00:30] VITALS: BP 134/81
--- NOTE | 2016-08-17 03:15 | NUR ---
PT AWAKE;DENIES ANY DISCOMFORT. REPOSITIONED IN BED FOR COMFORT. WILL CONTINUE TO MONITOR. SR UP X2, CALL LIGHT WITHIN REACH, BED ALARM ON AND SPOUSE AT BEDSIDE.
[2016-08-17 04:30] VITALS: BP 128/73
--- NOTE | 2016-08-17 04:49 | NUR ---
PT AWAKE; DENIES ANY DISCOMFORT. REPOSITIONED IN BED FR COMFORT. WILL CONTINUE TO MONITOR.
[2016-08-17 06:33] LABS: BASOPHILS 0.2 % (0.0-2.0); EOSINOPHILS 1.3 % (0-7); HEMATOCRIT 38.2 % (36.0-48.0); HEMOGLOBIN 12.1 g/dL (12-16); IMMATURE GRANULOCYTES 0.2 % (0-5); LYMPHOCYTES 27.6 % (15-50); MCH 29.8 pg (26.0-34.0); MCHC 31.7 g/dL (31.0-37.0); MCV 94.1 fL (80.0-100.0); MEAN PLATELET VOLUME 10.2 fL (7.4-10.4); MONOCYTES 8.2 % (2-11); NEUTROPHILS 62.5 % (40-80); PLATELET COUNT 164 10x3/uL (130-400); RBC 4.06 10x6/uL (4.00-5.40); RDW 16.3 % (11.5-14.5); WBC 5.5 10x3/uL (4.8-10.8)
--- NOTE | 2016-08-17 06:44 | NUR ---
VSS THROUGHUT NIGHT. CAF/UCAF PER CM. PT DENIED ANY DISCOMFORT. NEEDS MET; WILL CONTINUE TO MONITOR.
[2016-08-17 06:46] LABS: ALBUMIN 2.5 g/dL (3.4-5.0); ANION GAP 11.2 mmol/L (8-16); BILIRUBIN - TOTAL 0.72 mg/dL (0.2-1.3); CALCIUM 8.5 mg/dL (8.5-10.1); CARBON DIOXIDE 29.7 mmol/L (21.0-32.0); PHOSPHOROUS 3.1 mg/dL (2.5-4.9); POTASSIUM - SERUM 3.9 mmol/L (3.5-5.1); PROTEIN - SERUM 6.6 g/dL (6.4-8.2)
[2016-08-17 06:47] LABS: CREATININE - SERUM 0.9 mg/dL (0.6-1.3)
[2016-08-17 08:00] VITALS: BP 132/93
[2016-08-17 12:00] VITALS: BP 126/56
--- NOTE | 2016-08-17 12:35 | NUR ---
OT NOTE: PT ALERT TO NAME; UNABLE TO REMEMBER IF SHE HAD EATEN BREAKFAST OR WHAT SHE HAD DONE THIS AM; PRACTICED BED MOB WITH MOD ASSIST FOR ROLLING AND MOD/MAX FOR SUPINE TO SIT; PT STATED THAT SHE WAS DIZZY WHILE WE WERE SITTING ON EDGE OF BED; PT REMAINED STILL ON EDGE OF BED AND WAS ABLE TO MAINTAIN STATIC SITTING FOR SEVERAL MIN UNSUPPORTED. SHE THEN REPORTED THAT SHE HAD TO LIE DOWN BECAUSE SHE WAS DIZZY. REPOSITIONED IN BED ; VOICED NO COMPLAINTS AND REPORTED FEELING BETTER ONCE SHE WAS LIEING DOWN AGAIN
--- NOTE | 2016-08-17 14:14 | NUR ---
Patient Name: JAGRUTI MINER Encounter No: [id number] : 1935 Primary Insurance: HUMANA CHOICE PPO MCR ADVANT Anticipated DC Date: 08-14-2016 Planned Disposition: CARE HOME FACILITY External Planned Provider: [facility] OR [facility], MEDICARE REHAB BED DCP follow-up note: CM RECEIVED CALL FROM SANTI OF [facility], PT'S INSURANCE HAS DENIED SNF REHAB SERVICES INDICATING PT NEEDS FPC CARE, WHICH INSURANCE DOES NOT PAY FOR. CM OBTAINED A COPY OF THE DENIAL OF SERVICES, PROVIDED AND DISCUSSED WITH PT AND HER DAUGHTER, KHADRA. CM FAXED UPDATED INFORMATION TO [facility] AND [facility], REQUESTING FACILITIES CONTACT INSURANCE FOR RECONSIDERATION OF SNF REHAB SERVICES. CM RECEIVED CALL FROM BRYSON OF [facility], , WHO REPORTS SHE HAD FORWARDED INFORMATION TO [facility] AND SPOKEN TO THEM HAVING BEEN ADVISED IT MAY TAKE "A COUPLE OF DAYS" FOR REVIEW.. CM WAITING INSURANCE AUTHORIZATION FOR CARE HOME REHAB TO ENTER EITHER [facility] OR [facility]. IF TREATING PHYSICIAN WOULD LIKE TO DISCUSS THIS CASE WITH INSURANCE PHYSICIAN REVIEWER, PLEASE CALL WITHIN 5 DAYS, . Tristian Marrero, CASE MANAGEMENT
--- NOTE | 2016-08-17 14:28 | NUR ---
Patient Name: JAGRUTI MINER Encounter No: [id number] : 1935 Primary Insurance: HUMANA CHOICE PPO MCR ADVANT Anticipated DC Date: 08-14-2016 Planned Disposition: [facility] FACILITY External Planned Provider: [facility] [place], MEDICARE REHAB BED CM RECEIVED CALL FROM [facility], SPOKE TO JONNATHAN WHO REPORTS SHE MAY HAVE REHAB BED AVAILABILITY THIS WEEK AND WILL SEND REPRESNTATIVE OUT TOMORROW TO DO "SITE VISIT" FOR PT [place] FOR REHAB SERVICES AT [facility]. CM WAITING INSURANCE AUTHORIZATION FOR [facility] REHAB TO ENTER EITHER [facility] OR [facility]. CM WAITING EVALUATION BY [facility] FOR REHAB ADMISSION. IF TREATING PHYSICIAN WOULD LIKE TO DISCUSS THIS CASE WITH INSURANCE PHYSICIAN REVIEWER, PLEASE CALL WITHIN 5 DAYS, . JO CALDERON, CASE MANAGEMENT
--- NOTE | 2016-08-17 16:55 | NUR ---
ALERT AND ORIENTED X3. SPECIALTY MATTRESS PLACED ON BED. SITTING UP IN BED. DENIES PAIN OR SOB. DAUGHTER AT BEDSIDE. DAUGHTER EXPRESSES CONCERNS REGARDING INPATIENT REHAB DENIAL. DOCTOR NOTIFIED FOR APPEAL. UNCONTROLLED AFIB 109bpm ON TELEMETRY. CONTINUE PLAN OF CARE. BED LOCKED AND LOW. CALL LIGHT IN REACH. TWO SIDERAILS UP.
--- NOTE | 2016-08-17 19:30 | NUR ---
ASSESSMENT COMPLETE, SEE FLOW SHEET. ALERT AND ORIENTED X 3, RESP UNLAB WITH O2 @ 2LVIA NC IN PLACE, NS INFUSING W/O DIFF VIA PUMP AT 10CC/HR TO LEFT HAND IV WITH NO R/S NOTED AT SITE. ON FIRST STEP MATTRESS PER ORDERS, JENNIE WELL. TURN Q 2 HOURS FOR C & C. JENNIE WELL. DAUGHTER AT BEDSIDE FOR NIGHT. CONTINUE TO MONITOR. TELEMETRY SHOWING HR CAFIB AT THIS TIME.
--- NOTE | 2016-08-18 01:41 | NUR ---
EYES CLOSED, RESP EVEN AND UNLAB WITH NO S/S OF ACUTE DISTRESS NOTED. HOB UP SR UP X2, C/L IN REACH. CONTINUE TO MONITOR.
[2016-08-18 02:33] VITALS: BP 115/67
[2016-08-18 06:09] LABS: BASOPHILS 0.3 % (0.0-2.0); EOSINOPHILS 1.6 % (0-7); HEMATOCRIT 38.5 % (36.0-48.0); HEMOGLOBIN 12.2 g/dL (12-16); IMMATURE GRANULOCYTES 0.3 % (0-5); LYMPHOCYTES 30.1 % (15-50); MCH 29.5 pg (26.0-34.0); MCHC 31.7 g/dL (31.0-37.0); MCV 93.2 fL (80.0-100.0); MEAN PLATELET VOLUME 10.4 fL (7.4-10.4); NEUTROPHILS 59.7 % (40-80); PLATELET COUNT 184 10x3/uL (130-400); RBC 4.13 10x6/uL (4.00-5.40); RDW 16.3 % (11.5-14.5); WBC 6.7 10x3/uL (4.8-10.8)
[2016-08-18 06:37] VITALS: BP 138/90
[2016-08-18 07:07] LABS: ALBUMIN 2.6 g/dL (3.4-5.0); ALKALINE PHOSPHATASE 65 U/L (46-116); ALT (SGPT) 36 U/L (10-68); CALC OSMOLALITY 267 mosm/kg (275-300); CALCIUM 8.7 mg/dL (8.5-10.1); CARBON DIOXIDE 28.8 mmol/L (21.0-32.0); CHLORIDE - SERUM 99 mmol/L (98-107); CREATININE - SERUM 0.7 mg/dL (0.6-1.3); PHOSPHOROUS 3.6 mg/dL (2.5-4.9); POTASSIUM - SERUM 4.4 mmol/L (3.5-5.1); PROTEIN - SERUM 6.6 g/dL (6.4-8.2); SODIUM 134 mmol/L (136-145); UREA NITROGEN 12 mg/dL (7-18); eGFR NON AFRICAN AMERICAN 85 mL/min (90-120)
[2016-08-18 07:17] LABS: GLUCOSE 97 mg/dL (74-106)
[2016-08-18 08:02] VITALS: BP 142/95
--- NOTE | 2016-08-18 10:00 | NUR ---
ALERT AND ORIENTED X4. PHYSICAL THERAPY ASSIST TO CHAIR. MAX ASSIST X2 PEOPLE. DENIIES SOB OR PAIN. PLAN TO REMAIN IN CHAIR UNTIL AFTER LUNCH. UNCONTROLLED A-FIB 120bpm ON TELEMETRY. DAUGHTER AT BEDSIDE. CONTINUE PLAN OF CARE AND SAFETY PRECAUTIONS.
[2016-08-18 12:04] VITALS: BP 126/87
--- NOTE | 2016-08-18 14:42 | NUR ---
Nutrition follow-up: Diet: Regular mechanical soft with nectar thick liquids PO intake ~25% of meals Labs reviewed Spoke with Osei BRUNSON re: pts family is not giving pt thickened liquids; they are giving pt thin liquids. RDN will visit with daughter. Wt: 168# -> pt has had some weight loss; however, RDN is unsure how much. Pt is not meeting est nutritional needs with current po intake. May need to consider starting nutrition support - NGT vs PEG tube. RDN following.
[2016-08-18 15:54] VITALS: BP 127/84
--- NOTE | 2016-08-18 17:39 | NUR ---
ALERT AND ORIENTED X4. SITTING UP IN BED EATING. AT BEDSIDE ASSISTING WITH MEAL. INFORM ENCOURAGING INDEPENDENCE BEING MORE BENIFICIAL. PATIENT DEMONSTRATES ABILITY TO FEED SELF. ATTEMPTS TO DRINK CAN COKE WITHOUT THICKNER. INSTRUCT PATIENT AND FAMILY THE NEED FOR THICKEN LIQUIDS WILL PREVENT ASPIRATION. UNCONTROLLED AFIB 114bpm ON TELEMETRY. DENIES PAIN OR SOB. BED LOCKED AND LOW. CALL LIGHT IN REACH. TWO SIDERAILS UP. DENIES ANY NEEDS.
--- NOTE | 2016-08-18 17:44 | NUR ---
OT NOTE: PT REQUIRED MIN/MOD A WITH SELF FEEDING. PT COMPLETED BUE AROM AXS FOR INCREASED ACTIVITY TOLERANCE. THANK YOU, DEEPTHI ARECHIGA/Gardenia
--- NOTE | 2016-08-18 18:11 | NUR ---
Patient Name: JAGRUTI MINER Encounter No: [id number] : 1935 Primary Insurance: HUMANA CHOICE PPO MCR ADVANT Anticipated DC Date: 08-14-2016 Planned Disposition: [facility] FACILITY External Planned Provider: [facility], MEDICARE REHAB BED DCP follow-up note: CM FAXED REFERRAL TO [facility] AT PT'S REQUEST, . CM RECEIVED CALL FROM JONNATHAN OF [facility], , WHO REPORTS SHE WILL SEND FOR INSURANCE AUTHORIZATION FOR REHAB SERVICES AND MAY RECEIVE AUTH / DENIAL EARLY TOMORROW. CM FAXED UPDATED INFORMATION TO [facility] AT [phone]. CM SPOKE TO PT AND SPOUSE IN ROOM, BOTH IN AGREEMENT WITH DISCHARGE TO REHAB, PREFER [facility] IF POSSIBLE. CM WAITING INSURANCE AUTHORIZATION FOR [facility] REHAB TO ENTER EITHER [facility], [facility], [facility]. Tristian Marrero, CASE MANAGEMENT
--- NOTE | 2016-08-18 19:30 | NUR ---
ASSESSMENT COMPLETE, DENIES NEEDS AT THIS TIME. HOB UP SR UP X2, C/L IN REACH. TURN Q 2 HOURS FOR C & C. JENNIE WELL. ON FIRST STEP MATTRESS. AT BEDSIDE. CONTINUE TO MONITOR.
[2016-08-18 21:58] VITALS: BP 130/82
[2016-08-19 02:03] VITALS: BP 127/58
[2016-08-19 05:44] VITALS: BP 124/86
[2016-08-19 05:55] LABS: ALBUMIN 2.5 g/dL (3.4-5.0); ALKALINE PHOSPHATASE 59 U/L (46-116); CALCIUM 8.5 mg/dL (8.5-10.1); CARBON DIOXIDE 28.7 mmol/L (21.0-32.0); CREATININE - SERUM 0.7 mg/dL (0.6-1.3); GLUCOSE 109 mg/dL (74-106); PROTEIN - SERUM 6.1 g/dL (6.4-8.2); UREA NITROGEN 12 mg/dL (7-18); eGFR NON AFRICAN AMERICAN 85 mL/min (90-120)
[2016-08-19 06:00] LABS: ALT (SGPT) 17 U/L (10-68)
[2016-08-19 06:16] LABS: CALC OSMOLALITY 268 mosm/kg (275-300); CHLORIDE - SERUM 99 mmol/L (98-107); POTASSIUM - SERUM 4.5 mmol/L (3.5-5.1); SODIUM 134 mmol/L (136-145)
[2016-08-19 09:06] VITALS: BP 147/102
--- NOTE | 2016-08-19 10:51 | NUR ---
Patient Name: JAGRUTI MINER Encounter No: [id number] : 1935 Primary Insurance: HUMANA CHOICE PPO MCR ADVANT Anticipated DC Date: 08-14-2016 Planned Disposition: Home DCP follow-up note: CM RECEIVED CALL FROM [facility] WHO REPORTED THAT PT'S INSURANCE COMPANY HAS DENIED SKILLED REHAB SERVICES, INDICATING PT IS APPROPRIATE FOR CARE HOME CARE WHICH IS NOT COVERED BY INSURANCE. PHYSICIAN MAY APPEAL THE INSURANCE COMPANY DECISION BY CALLING PHYSICIAN REVIEWER AT [phone] WITHIN 5 DAYS FROM 08-19-16. CM NOTIFIED PT AND SPOUSE IN ROOM, PROVIDED COPY OF DENIAL TO PT AND SPOUSE, ADVISED PT AND SPOUSE TO CONTACT THEIR INSURANCE COMPANY IMMEDIATELY. PT'S SPOUSE REPORTS HE IS NOT ABLE TO AFFORD [facility]IC[facility]ED [facility] AND WILL DISCUSS PT'S CONDITION WITH THE DOCTOR AND PT'S FAMILY. PT'S SPOUSE WOULD LIKE THE DOCTOR HERE TO CONTACT THE INSURANCE COMPANY DOCTOR TO APPEAL THE DECISION FOR REHAB SERVICES. CM ADVISED THAT THE DOCTOR YESTERDAY DECLINED TO CALL. PT'S SPOUSE REPORTS HE WILL SPEAK TO THE DOCTOR TODAY AND MAKE THE REQUEST HIMSELF. CM WAITING FAMILY DECISION ON DISCHARGE PLAN, THEY ARE WANTING THE DOCTOR TO CALL INSURANCE TO APPEAL FOR SNF REHAB BENEFIT WHICH WAS DECLINED BY INSURANCE. Tristian Marrero, CASE MANAGEMENT
[2016-08-19 12:35] VITALS: BP 141/96
--- NOTE | 2016-08-19 14:34 | NUR ---
Patient Name: JAGRUTI MINER Encounter No: [id number] : 1935 Primary Insurance: HUMANA CHOICE PPO MCR ADVANT Anticipated DC Date: 08-14-2016 Planned Disposition: Home WITH HOME HEALTH External Planned Provider: TO BE DETERMINED DCP follow-up note: CM RECEIVED CALL FROM BRYSON [facility] WHO REPORTED THAT PT'S INSURANCE COMPANY HAS DENIED SKILLED REHAB SERVICES, INDICATING PT IS APPROPRIATE FOR [facility] CARE WHICH IS NOT COVERED BY INSURANCE. PHYSICIAN MAY APPEAL THE INSURANCE COMPANY DECISION BY CALLING PHYSICIAN REVIEWER AT [phone] WITHIN 5 DAYS FROM 08-19-16. CM NOTIFIED PT IN ROOM, PROVIDED COPY OF DENIAL TO PT, ADVISED PT TO CONTACT THEIR INSURANCE COMPANY IMMEDIATELY. PT WILL NOTIFY HER SPOUSE. PT'S INSURANCE HAS DECLINED SKILLED REHAB AT [facility] AND [facility], REPORTING PT NEEDS "[facility] CARE". CM WAITING FAMILY DECISION ON DISCHARGE PLAN, FAMILY REQUESTING THE DOCTOR TO CALL INSURANCE TO APPEAL FOR SNF REHAB BENEFIT WHICH WAS DECLINED BY INSURANCE. Tristian Marrero, CASE MANAGEMENT
--- NOTE | 2016-08-19 15:04 | NUR ---
OT NOTE: PT SEEN WHILE SITTING UP IN CHAIR; ATTEMPTED AROM EXS IN B UES, HOWEVER, ONLY ABLE TO RAISE ARMS APPROX 15 DEGREES..ASSISTED PT WITH END RANGES
[2016-08-19] MEDS ORDERED: BETAPACE 80 MG80 MG PO (16:00)
[2016-08-19] MEDS ORDERED: IPRAT-ALBUT 0.5-3 ML INH (16:00)
[2016-08-19] MEDS ORDERED: CARDIZEM30 MG PO (16:00)
[2016-08-19] MEDS ORDERED: PROTONIX FOR OR40 MG PO (16:01)
--- NOTE | 2016-08-19 16:23 | NUR ---
Patient Name: JAGRUTI MINER Encounter No: [id number] : 1935 Primary Insurance: HUMANA CHOICE PPO MCR ADVANT Anticipated DC Date: 08-19-2016 Planned Disposition: [facility] FACILITY External Planned Provider: [facility], MEDICARE REHAB BED DCP follow-up note: CM SPOKE TO DR. SERRANO WHO REPORTS CALLING THE INSURANCE DOCTOR AND THE DENIAL HAS BEEN OVERTURNED AND THEY WILL AUTHORIZE REHAB AT [facility], PT WILL DISCHARGE TO REHAB TODAY. CM RECEIVED CALL FROM [facility], SPOKE TO DIMPLE WHO REPORTS THEY CAN ADMIN SECRETARY PT AT ABOUT 4:30PM TODAY. CM SPOKE TO PT IN ROOM WHO IS IN AGREEMENT WITH DISCHARGE TO [facility] FOR REHAB TODAY. IMPORTANT MESSAGE FROM MEDICARE PROVIDED AND EXPLAINED. CM CALLED PT'S SPOUSE, , DISCUSSED AUTHORIZATION TO REHAB AT [facility] AND DISCHARGE TODAY. SPOUSE IN AGREEMENT WITH DISCHARGE PLAN. BED MACHINE OPERATOR NURSE NOTIFIED. CM FAXED DISCHARGE INFORMATION TO [facility] AT [phone]. NURSE REPORT TO BE [facility]ED [facility]UR[facility]) AT [phone]. VAN TO ADMIN SECRETARY PT AT ABOUT 4:45PM. Tristian Marrero, CASE MANAGEMENT
--- NOTE | 2016-08-19 17:03 | NUR ---
IV AND TELEMETRY DCD. DC PLANS GIVEN TO NH. UNDERSTANDING VOICED.
--- NOTE | 2016-08-19 17:04 | NUR ---
Patient Name: MARTI MORENO Admission Status: ER Accout number: [id number] Admission Date: 08-16-2016 : 11-20-1924 Admission Diagnosis:SHORTNESS OF BREATH Attending: PATRICIO Current LOS: 3 Anticipated DC Date: Planned Disposition: Home Primary Insurance: MEDICARE A & B Discharge Planning Comments: * Is the patient Alert and Oriented? Yes 0 * How many steps to enter\exit or inside your home? RAMP 0 * PCP DR. BARRY 0 * Pharmacy [facility] 0 * Preadmission Environment Home Alone 0 * ADLs Partial Dependent 0 * Partial ADLs (Assistance needed) Medication Management 0 * Equipment Cane Rolling Walker Shower Chair Wheelchair 0 * Other Equipment MANUAL AND ELECTRIC WHEELCHAIR NO MEDICAL EQUIOPMENT PROVIDER PREFERENCE 0 * List name and contact numbers for known caregivers / representatives who currently or will assist patient after discharge: ERIC DE LOS SANTOS, DAUGHTER, 0 * Community resources currently utilized None 0 * Please name any agencies selected above. NONE 0 * Additional services required to return to the preadmission environment? No 0 * Can the patient safely return to the preadmission environment? Yes 0 * Has this patient been hospitalized within the prior 30 days at any hospital? No 0 CM MET WITH PT AND DAUGHTER IN ROOM TO DISCUSS DISCHARGE PLANNING AND NEEDS. PT REPORTS LIVING AT HOME INDEPENDENTLY AND ALONE. PT HAS RAMP TO ENTER HOME AND NO STAIR INSIDE. PT'S DAUGHTER ASSISTS WITH MEDICATION MANAGEMENT. PT'S FAMILY LIVES BESIDS AND BEHIND HER AND IS AVAILABLE TO ASSIST WITH ANY NEEDS. PT HAS CANE, WALKER, ROLLING WALKER, SHOWER CHAIR, WHEELCHAIR AND ELECTRIC WHEELCHAIR WITH NO PROVIDER PREFERENCE. PT HAS NO OUTSIDE SERVICES ASSISTING IN THE HOME. CM DISCUSSED AVAILABILITY OF HOME HEALTH, REHAB SERVICES AND MEDICAL EQUIPMENT. PT DOES NOT ANTICIPATE ANY DISCHARGE NEEDS, REPORTS HER FAMILY WILL BE AVAILABLE TO PICK HER UP FOR DISCHARGE HOME. PT PLANS TO DISCHARGE HOME ALONE WITH FAMILY LIVING CLOSEBY FOR ASSISTANCE NEEDED. CM TO FOLLOW AND ASSIST NEEDED. Public Transit Bus Driver: Tristian Marrero
--- NOTE | 2016-08-19 17:27 | NUR ---
MARCO CARNEY. KAROL AND UP TO W/C. LEAVING FOR NH.
--- NOTE | 2016-08-19 17:36 | NUR ---
OT NOTE: PT COMPLETED BUE AAROM FOR INCREASED I WITH ADLS. PT COMPLETED BUE POSITIONING TO DECREASE EDEMA. PT COMPLETED GROOMING TASK WITH MIN A. THANK YOU, DEEPTHI ARECHIGA/Gardenia
== END 2016-08-19 17:27 | DRG 292 ==
LOC: D.ER 19:41 → D.MS 21:21 → D.M2 21:21 → D.ICU 08-07 20:17 → D.M2 08-10 16:00
PROVIDERS: Emergency Medicine; Family Medicine; Internal Medicine; Internal Medicine Nephrology; ADMIT Family Medicine
DX: I11.0 Hypertensive heart disease with heart failure (principal); E87.1 Hypo-osmolality and hyponatremia; N39.0 Urinary tract infection, site not specified; N17.9 Acute kidney failure, unspecified; I50.21 Acute systolic (congestive) heart failure; G20 Parkinson's disease; E03.9 Hypothyroidism, unspecified; Z79.01 Long term (current) use of anticoagulants; I08.1 Rheumatic disorders of both mitral and tricuspid valves; B96.20 Unspecified Escherichia coli [E. coli] as the cause of diseases classified elsewhere; Z86.73 Personal history of transient ischemic attack (TIA), and cerebral infarction without residual deficits; I48.0 Paroxysmal atrial fibrillation